=== PATIENT | male | born 1960 | race Caucasian/White ===

== ENCOUNTER 2019-05-28 21:11 | Observation (INO) | payer OTHER, SELFPAY ==
[2019-05-28] VITALS (7 sets, daily range): BP systolic 160–188; BP diastolic 93–107; PULSE 92–98; RESP 17–25; TEMP 36.8–37.2; O2SAT 95–98; BMI 34.9; BMI 34.0; BMI 34.1
--- NOTE | 2019-05-28 21:12 | CCN.REFER ---
RN CALLED FOR EKG, NO OLD EKGS IN MUSE
--- NOTE | 2019-05-28 21:22 | EKG12_ITS ---
Test Reason : CP Blood Pressure : / mmHG Vent. Rate : 100 BPM Atrial Rate : 100 BPM P-R Int : 160 ms QRS Dur : 100 ms QT Int : 360 ms P-R-T Axes : 052 033 034 degrees QTc Int : 464 ms Normal sinus rhythm Possible Left atrial enlargement Incomplete right bundle branch block Borderline ECG Confirmed by JOHN MOSER, OMER ([id number]), editorial assistant ARLETH ROBLES ([id number]) on 06/03/2019 9:37:56 AM Referred By: SHEYLA Confirmed By:NICKI LOPEZ MD
--- NOTE | 2019-05-28 21:22 | RAD_ITS ---
STUDY: X-RAY CHEST REASON FOR EXAM: Male, 58 years old. Chest pain. TECHNIQUE: Single AP portable view of the chest. COMPARISON: None. FINDINGS: The lungs are clear and expanded. There is no demonstrated pleural abnormality. Normal size heart. Normal mediastinum and selene. Normal visualized pulmonary arteries. Normal visualized aortic arch and descending thoracic aorta. Normal visualized thoracic spine. Normal visualized ribs, clavicles, and shoulders. There is no demonstrated abnormality of the visualized soft tissue structures of the upper abdomen. RAD/Chest 1 View (Portable) IMPRESSION: Normal x-ray examination of the chest. Electronically Signed: Piotr Mir MD at 21:43 EDT , Service support ,
[2019-05-28 21:33] LABS: Absolute Neutrophil Count 5.6 X10^3/uL (2.0-7.7); Basophil# 0.06 X10^3/uL; Basophil% 0.7 % (0-1); Eosinophils% 1.2 % (0-5); Hematocrit 47.8 % (40-54); Hemoglobin 15.9 g/dL (13.0-16.5); Lymphocyte % 25.8 % (19-41); Mean Corp Hgb Conc 33.3 g/dL (32-36); Mean Corpuscular Hgb 30.8 pg (27.0-32.0); Mean Corpuscular Volume 92.5 fL (80-94); Mean Platelet Vol. 9.4 fl (6.2-12.0); Monocyte# 0.52 X10^3/uL; Monocyte% 6.1 % (0-10); NRBC Flagged by Analyzer 0 % (0-5); Neutrophil # 5.61 X10^3/uL (2.7-7.7); Neutrophil % 65.8 % (47-70); Platelet Count 236 K/mm3 (150-450); RBC Distribution Width CV 11.6 % (11.6-14.6); RBC Distribution Width SD 39.8 fl (35.1-43.9); Red Blood Count 5.17 M/mm3 (4.6-6.2); White Blood Count 8.5 K/mm3 (4.4-11.0)
[2019-05-28 21:46] LABS: Anion Gap 6 (5-15); BUN 22 mg/dL (7-18); BUN/Creat Ratio 18.3 RATIO (10-20); Calcium,Total 9.6 mg/dL (8.5-10.1); Chloride 103 mmol/L (98-107); EST Glomerular Filtration Rate 66 mL/min (>60); Est Glom Filt Rate - Afr Amer 80 mL/min (>60); Estimated Creatinine Clearance 64.92 ml/min; Glucose 160 mg/dL (74-106); Potassium 3.9 mmol/L (3.5-5.1); Sodium Level 139 mmol/L (136-145)
[2019-05-28] MEDS: Aspirin 81 MG TAB.CHEW 324 MG PO (21:46)
[2019-05-28] MEDS: 0.9% Normal Saline 1,000 ML 150 ML IV (21:52)
--- NOTE | 2019-05-28 22:16 | ED.VISSUMM ---
- ER Visit Summary Date of Service: 05/28/19 Chief Complaint: [Chest pain] History of Present Illness: The patient is a 58 M [presents to the emergency department with chest discomfort that started around 8 PM. Patient states that he had finished eating and then was working on remodeling a stove. Patient bent over and developed sudden onset of chest pressure and diaphoresis. Patient states that his hair was soaked. He denied feeling lightheaded or dizzy. Patient had some discomfort and radiation of pressure into his neck area. He denied any real vomiting. Patient did complain of some mild shortness of breath. He is never had discomfort like that before. Patient has no medical history. He denies recent travel or surgery. Denies history of blood clots. No family history of dissection or Marfan's.] Patient states currently discomfort mostly resolved. Physical Examination: [HEENT-PERRLA, EOMI. Cranial nerves II through XII grossly intact. TMs clear. Mucous membranes moist. No adenopathy. Cardiovascular-regular rate and rhythm without murmur or ectopy Lungs-clear to auscultation, chest wall stable without crepitus or subcu emphysema Abdomen-normoactive bowel sounds, soft, nontender, no rebound or rigidity, no peritoneal signs. Extremities-intact ?4, normal range of motion, normal pulses, atraumatic] Test Results: [EKG obtained arrival shows sinus rhythm with a ventricular rate of 100 bpm with no acute ST segment changes. CBC with differential showed a white count of 8.5, hemoglobin 15.9 medically 48, placed 236. Chemistries unremarkable. Troponin is less than 0.015. Chest x-ray showed nothing acute.] Emergency Department Course and Treatment: [Patient was given aspirin on arrival.] Treatment Plan: [Admit for further work-up and evaluation of chest pain] Disposition: [Admit] Impression: [Chest pain-rule out acute coronary syndrome] This note was generated with [employer] dictation software. It may contain incorrect words, spelling, and punctuation that were not noted in review of the chart prior to signing ED Disposition - Plan for ED Patient: Referrals: Ramses Sánchez MD [Primary Care Provider] -
--- NOTE | 2019-05-28 22:30 | HP.PCM_ITS ---
Problem List (1) Atypical chest pain Status: Acute (2) Hypertension Status: Chronic History of Present Illness Date of Admission: 05/28/19 Chief Complaint: Diaphoresis The patient is a 58 year old M with with no significant past medical history, possible undiagnosed hypertension not on medication came to ED with main complaint of diaphoresis and mild right subclavicular chest tightness/pain lasting for 20 minutes. Patient further said while he was working on the remodeling of kitchen, he bent down and felt like diaphoresis, very mild chest tightness on the right side with with radiation to neck. He says his chest pain is secondary but main problem is diaphoresis. He also felt heavy breathing. The symptoms started about 8 PM and has resolved. Patient never had similar history of chest pain or OK. Never had a stress test or other cardiac test. Blood pressure in ED elevated 171/107. In ED, EKG shows normal sinus rhythm at 100 bpm with incomplete right bundle branch block with T inversion in lead V1. X-ray reported normal. Basic blood work shows BUN 22 mildly elevated. Glucose 160.] Past Medical History Past Medical History (Chronic Problems): Chronic Problems Hypertension (Chronic) Allergies No Known Allergies Allergy (Verified 05/28/19 21:14) Home Medications: Ambulatory Orders Medication Instructions Recorded NK 05/28/19 Smoking Status: Never smoker Alcohol: Occasional Drugs: None - *Family History Paternal History Items: Cancer - Chronic smoker, COPD and lung cancer Review of Systems Constitutional: Denies: Chills, Fever, Weight Change HEENT: Denies: Head Aches, Sinus Congestion, Sinus Drainage Cardiovascular: Reports: Chest Pain. Denies: Palpitations Respiratory: Denies: Cough, Shortness of breath at rest, Sputum production Gastrointestinal: Denies: Abdominal Pain, Nausea, Vomiting Genitourinary: Denies: Dysuria Musculoskeletal: Denies: Joint Pain, Joint Tenderness Skin: Denies: Rash, Wounds Neurological: Denies: Numbness, Tingling, Focal weakness Psychiatric: Denies: Anxiety, Depression, Homicidal Ideations, Suicidal Ideations Hematologic/ Lymphatic: Denies: Easy Bruising, Easy Bleeding VTE Information - Inpt Only VTE Present on Admission: No VTE Mechan Device Prophylaxis: None VTE Pharm Prophylaxis ordered?: Yes Patient Problems: Active and Suspected Problems Atypical chest pain (Acute) - Physical Exam General: Alert, Oriented x3, Cooperative HEENT: Atraumatic, PERRLA, EOMI, Normocephalic Neck: Supple, No JVD, Negative Carotid Bruits Lungs: Clear to auscultation, Normal air movement, No rhonchi, No wheeze, No rales Cardiovascular: Regular rate, Regular Rhythm, Normal S1, Normal S2, No murmurs Abdomen: Bowel Sounds Present, Soft, Non Tender, Non-Distended Extremities: No edema, Capillary Refill Less than 3 Seconds Skin: No rashes, No breakdown Musculoskeletal: No Tenderness to Palpation of Joints or Extremities, Arthritic Changes Neurological: Cranial nerves II-XII grossly intact, Deep Tendon Reflexes 2+/4 and Symmetrical, Neuro grossly intact, Motor Exam 5/5 strength throughout Psych/Mental Status: Normal Affect, Appropriate Vital Signs Temp Pulse Resp BP Pulse Ox 98.9 F 98 25 H 171/107 H 96 05/28/19 21:12 05/28/19 22:27 05/28/19 22:27 05/28/19 22:27 05/28/19 22:27 Oxygen Delivery Method Room Air Weight: 229 lb 8.019 oz Body Mass Index (BMI) 34.9 Laboratory Tests Past 24 Hrs 05/28/19 05/28/19 21:13 21:13 WBC 8.5 RBC 5.17 Hgb 15.9 Hct 47.8 MCV 92.5 MCH 30.8 MCHC 33.3 RDW Std Deviation 39.8 RDW Coeff of Doretha 11.6 Plt Count 236 MPV 9.4 Immature Gran % (Auto) 0.400 Neut % (Auto) 65.8 Lymph % (Auto) 25.8 [place] % (Auto) 6.1 Eos % (Auto) 1.2 Baso % (Auto) 0.7 Absolute Neuts (auto) 5.6 Absolute Lymphs (auto) 2.20 Nucleated RBC % 0 Sodium 139 Potassium 3.9 Chloride 103 Carbon Dioxide 30.0 Anion Gap 6 BUN 22 H Creatinine 1.20 Estim Creat Clear Calc 64.92 Est GFR (MDRD) Af Amer 80 Est GFR (MDRD) Non-Af 66 BUN/Creatinine Ratio 18.3 Glucose 160 H Calcium 9.6 Troponin I < 0.015 Assessment/Plan All Active Problems Atypical chest pain (Acute) The patient is a 58 year old M with with no significant past medical history, possible undiagnosed hypertension not on medication came to ED with main complaint of diaphoresis and mild right subclavicular chest tightness/pain lasting for 20 minutes. Patient further said while he was working on the remodeling of kitchen, he bent down and felt like diaphoresis, very mild chest tightness on the right side with with radiation to neck. He says his chest pain is secondary but main problem is diaphoresis. He also felt heavy breathing. The symptoms started about 8 PM and has resolved. Patient never had similar history of chest pain or OK. Never had a stress test or other cardiac test. Blood pressure in ED elevated 171/107. In ED, Chest X-ray reported normal. Basic blood work shows BUN 22 mildly elevated. Glucose 160. 1. Atypical presentation of chest pain with diaphoresis rule out acute coronary syndrome: Patient is being admitted in PCU. Serial troponin enzymes. Patient only wants exercise EKG test but no nuclear stress test unless it is absolutely needed and the same ordered for tomorrow a.m. EKG shows normal sinus rhythm at 100 bpm with incomplete right bundle branch block with T inversion in lead V1. With incomplete right bundle branch block, there is probability that stress EKG may not be enough sensitive/specific to rule out acute coronary syndrome that was explained to the patient. TSH and fasting profile tomorrow a.m. Magnesium tomorrow a.m. 2. Undiagnosed uncontrolled hypertension: In the ER, highest blood pressure was 188/101 and lowest 160/95. Started on losartan 50 mg daily, first dose now. Titrate the dose of medication as per blood pressure trending. Hydralazine 10 mg IV every 4 hourly as needed for systolic blood pressure more than 180 and/or diastolic 100. BUN slightly elevated. IV fluid normal saline at 100 normal per hour. 3. Hyperglycemia: Glucose 160 in BMP. A1c tomorrow a.m. Occasional heartburn: . Protonix 40 mg daily added. Mylanta as needed DVT prophylaxis: Lovenox 40 g subcu daily Laboratory Results 05/28/19 21:13: WBC 8.5, RBC 5.17, Hgb 15.9, Hct 47.8, MCV 92.5, MCH 30.8, MCHC 33.3, RDW Std Deviation 39.8, RDW Coeff of Doretha 11.6, Plt Count 236, MPV 9.4, Immature Gran % (Auto) 0.400, Neut % (Auto) 65.8, Lymph % (Auto) 25.8, [place] % (Auto) 6.1, Eos % (Auto) 1.2, Baso % (Auto) 0.7, Absolute Neuts (auto) 5.6, Absolute Lymphs (auto) 2.20, Nucleated RBC % 0 05/28/19 21:13: Sodium 139, Potassium 3.9, Chloride 103, Carbon Dioxide 30.0, Anion Gap 6, BUN 22 H, Creatinine 1.20, Estim Creat Clear Calc 64.92, Est GFR (MDRD) Af Amer 80, Est GFR (MDRD) Non-Af 66, BUN/Creatinine Ratio 18.3, Glucose 160 H, Calcium 9.6, Troponin I < 0.015 Clinical Impression(s) from Imaging Studies Chest X-Ray 05/28/19 21:22 IMPRESSION: Normal x-ray examination of the chest. Code Visit OBSV E&M: 78422 Initial observation care L3
--- NOTE | 2019-05-28 23:38 | EKG12_ITS ---
Test Reason : CP ADMISSION Blood Pressure : / mmHG Vent. Rate : 086 BPM Atrial Rate : 086 BPM P-R Int : 168 ms QRS Dur : 104 ms QT Int : 372 ms P-R-T Axes : 051 033 033 degrees QTc Int : 445 ms Normal sinus rhythm Incomplete right bundle branch block Borderline ECG No previous ECGs available Confirmed by GUILLERMO CASTRO ([id number]), photograph editor ARLETH ROBLES ([id number]) on 06/03/2019 10:39:01 AM Referred By: BRENNON Confirmed By:GUILLERMO CASTRO
[2019-05-29] VITALS (13 sets, daily range): BP systolic 122–154; BP diastolic 81–99; PULSE 78–85; RESP 16–18; TEMP 36.4–37; O2SAT 94–99
[2019-05-29] MEDS: 0.9% NaCl Peripheral Flush Adult/Peds IV (00:15)
[2019-05-29] MEDS: Enoxaparin 40 MG/0.4 ML Syringe SC (00:15)
[2019-05-29] MEDS: Pantoprazole Sodium 40 MG Tablet PO (00:15)
[2019-05-29] MEDS: Losartan Potassium 50 MG Tablet PO ×2 (00:15→03:39)
[2019-05-29] MEDS: 0.9% Normal Saline 1,000 ML 100 ML IV (00:15)
[2019-05-29 00:54] LABS: Magnesium 2.3 mg/dL (1.6-2.6)
[2019-05-29] MEDS: Enoxaparin 60 MG/0.6 ML Syringe SC (03:39)
[2019-05-29 05:01] LABS: Hemoglobin A1c 5.8 % (4.2-6.3)
--- NOTE | 2019-05-29 05:55 | EKG12_ITS ---
Test Reason : AM EKG Blood Pressure : / mmHG Vent. Rate : 080 BPM Atrial Rate : 080 BPM P-R Int : 162 ms QRS Dur : 104 ms QT Int : 388 ms P-R-T Axes : 068 039 036 degrees QTc Int : 447 ms Normal sinus rhythm Incomplete right bundle branch block Borderline ECG When compared with ECG of 28-MAY-2019 23:36, MANUAL COMPARISON REQUIRED, DATA IS UNCONFIRMED Confirmed by GUILLERMO CASTRO ([id number]), video editor ARLETH ROBLES ([id number]) on 06/03/2019 10:41:12 AM Referred By: BRENNON Confirmed By:GUILLERMO CASTRO
[2019-05-29 06:05] LABS: Cholesterol 173 mg/dL (200); High Density Lipoprotein 42 mg/dL; Thyroid Stim Hormone (TSH) 2.13 uIU/mL (0.358-3.74); Triglycerides 114 mg/dL; Very Low Density Lipoprotein 23 mg/dL (5-40)
--- NOTE | 2019-05-29 09:40 | PCM.CONS.C ---
<Ramses Green - Last Filed: 05/29/19 11:46> Problem List (1) Non-ST elevated myocardial infarction (non-STEMI) Status: Acute (2) Atypical chest pain Status: Acute (3) Hypertension Status: Chronic Reason for Consult Date of Consultation: 05/29/19 Reason for Consultation: NSTEMI, Chest pain History of Present Illness: The patient is a 58 year old M who presented to [facility] emergency department on 05/28/2019 for chest pain associated with diaphoresis and mild shortness of breath. He has a past medical history of hypertension. He denies previous history of smoking, diabetes, illegal or street drugs, or excessive alcohol. He states he was at home working on a remodeling project and after bending forward he became very diaphoretic and noticed right upper chest pain. This was associated with intermittent shortness of breath and belching. He described this as a heavy sensation and rated a 2 out of 10. This lasted for approximately 20 to 30 minutes. He did take [id number] Tums. While in the Emergency Department he underwent an EKG that showed normal sinus rhythm without ST or T wave changes. His first troponin was negative. His chest x-ray was negative for acute pathology. He was admitted for further evaluation. Cardiology was consulted for further recommendation. Past Medical History Allergies/Adverse Reactions: Allergies No Known Allergies Allergy (Verified 05/28/19 21:14) Home Medications: Ambulatory Orders Medication Instructions Recorded Aspirin E.C. [Ecotrin] 81 mg PO DAILY@0800 #30 tab 05/29/19 Losartan Potassium [Cozaar] 100 mg PO DAILY #30 tab 05/29/19 Past Medical History (Chronic Problems): Chronic Problems (Last Updated 05/29/19 @ 16:06 by Yvonne Payan) Essential hypertension (Chronic) - *Family History Paternal History Items: Cancer - Chronic smoker, COPD and lung cancer Smoking Status: Never smoker Alcohol: Occasional Drugs: None Review of Systems - Review of Systems General: Denies: Fever, Fatigue, Malaise, Chills HEENT: Denies: Vision Change Cardiovascular: Reports: Chest Discomfort - Resolved, Chest Discomfort with Exertion - Resolved, Chest Heaviness - Resolved, Shortness of Breath - Resolved, Shortness of Breath with Exertion - Resolved. Denies: Chest Discomfort at Rest, Chest Pressure, Chest Tightness, Orthopnea, PND, Peripheral Edema, Palpitations, Lightheadedness, Dizziness, Near Syncope, Syncope Respiratory: Denies: Cough Neurological: Denies: Dizziness Subjectve: Patient seen and evaluated. He currently denies chest pain, shortness of breath, diaphoresis, lower extremity edema, or orthopnea. Objective: Vital Signs Temp Pulse Resp BP Pulse Ox 98.3 F 80 16 143/93 H 99 05/29/19 09:10 05/29/19 09:10 05/29/19 09:10 05/29/19 09:10 05/29/19 09:10 Oxygen Delivery Method Room Air Weight: 224 lb 3.362 oz Body Mass Index (BMI) 34.0 Intake and Output for Last 24 Hours 05/27/19 05/28/19 05/29/19 23:59 23:59 23:59 Intake Total 170 / 830 780 / 780 Balance 170 / 830 780 / 780 General: Healthy Appearing, Awake, Alert, Oriented x 3, Cooperative, No Acute Distress HEENT: Atraumatic Oral: Moist Mucosa Neck: No JVD Lungs: Clear to auscultation Cardiovascular: Regular Rhythm, Normal S1, Normal S2, No Murmurs, No Rubs, No Gallops Vascular: No Carotid Bruits Abdomen: Bowel Sounds Present, Soft Extremities: No Cyanosis, No Clubbing, No edema, Normal Capillary Refill Neurological: No Focal Motor or Sensory Deficit 05/28/19 21:13: WBC 8.5, RBC 5.17, Hgb 15.9, Hct 47.8, MCV 92.5, MCH 30.8, MCHC 33.3, Plt Count 236, MPV 9.4, Immature Gran % (Auto) 0.400, Neut % (Auto) 65.8, Lymph % (Auto) 25.8, [place] % (Auto) 6.1, Eos % (Auto) 1.2, Baso % (Auto) 0.7, Absolute Neuts (auto) 5.6, Nucleated RBC % 0 05/28/19 21:13: Sodium 139, Potassium 3.9, Chloride 103, Carbon Dioxide 30.0, Anion Gap 6, BUN 22 H, Creatinine 1.20, Est GFR (MDRD) Af Amer 80, Est GFR (MDRD) Non-Af 66, BUN/Creatinine Ratio 18.3, Glucose 160 H, Calcium 9.6, Troponin I < 0.015 05/29/19 00:30: Magnesium 2.3, Troponin I 0.507 H 05/29/19 03:20: Troponin I 0.448 H 05/29/19 03:20: Triglycerides 114, Cholesterol 173, LDL Cholesterol 108, VLDL Cholesterol 23, HDL Cholesterol 42 05/29/19 03:20: Hemoglobin A1c 5.8 Rhythm: EKG: ECHO: Stress Test: Cardiac Cath: PCI: CT Surgery: Holter monitor: EPS: PPM: CXR: Chest CT Scan: Assessment/Plan 1. Non-ST elevated myocardial infarction Patient has both typical and atypical features in regards to his chest pain. His EKG shows normal sinus rhythm without acute ST or T wave changes with a right bundle branch block and a QTC of 447. His initial troponin was negative. His second troponin was 0.507 and the third troponin was 0.448. He will proceed with heart catheterization for further evaluation of coronary artery disease. He will continue with Aspirin therapy. Based on results, further recommendation will be made, which may include cholesterol-lowering medication and further antiplatelet medication. He will also undergo an echocardiogram to evaluate further. 2. Atypical chest pain Patient does describe symptoms of atypical chest pain in that this was associated predominantly with belching. However, given his cardiac enzyme changes he will proceed with heart catheterization for further evaluation. If his heart catheterization is normal, optimal medical management is recommended. 3. Hypertension His blood pressure continues to fluctuate. He does not take any medications at home. He has been prescribed losartan 100 mg p.o. daily here at the hospital. Based on results of his heart catheterization and blood pressure he may benefit from beta-joao. He should continue current medical therapy. His echocardiogram will help assist in treatment and help monitor left ventricular size. Patient's case was discussed further with Dr. Hanks, who also personally will evaluate patient. Thank you for allowing us to participate in the patients plan of care, if you have any questions please do not hesitate to call. This note was generated using a voice recognition system and there may be incorrect words, spelling or punctuation that were not noted when reviewing the office note prior to saving. <Juliet Hanks - Last Filed: 05/29/19 17:14> Reason for Consult History of Present Illness: The patient is a 58 year old M [] Objective: Vital Signs Temp Pulse Resp BP Pulse Ox 98.6 F 81 17 154/94 H 96 05/29/19 16:50 05/29/19 16:50 05/29/19 16:50 05/29/19 16:50 05/29/19 16:50 Oxygen Delivery Method Room Air Weight: 224 lb 3.362 oz Body Mass Index (BMI) 34.0 Intake and Output for Last 24 Hours 05/27/19 05/28/19 05/29/19 23:59 23:59 23:59 Intake Total 170 / 830 1779 Balance 170 / 830 1779 / 177905/28/19 21:13: WBC 8.5, RBC 5.17, Hgb 15.9, Hct 47.8, MCV 92.5, MCH 30.8, MCHC 33.3, Plt Count 236, MPV 9.4, Immature Gran % (Auto) 0.400, Neut % (Auto) 65.8, Lymph % (Auto) 25.8, [place] % (Auto) 6.1, Eos % (Auto) 1.2, Baso % (Auto) 0.7, Absolute Neuts (auto) 5.6, Nucleated RBC % 0 05/28/19 21:13: Sodium 139, Potassium 3.9, Chloride 103, Carbon Dioxide 30.0, Anion Gap 6, BUN 22 H, Creatinine 1.20, Est GFR (MDRD) Af Amer 80, Est GFR (MDRD) Non-Af 66, BUN/Creatinine Ratio 18.3, Glucose 160 H, Calcium 9.6, Troponin I < 0.015 05/29/19 00:30: Magnesium 2.3, Troponin I 0.507 H 05/29/19 03:20: Troponin I 0.448 H 05/29/19 03:20: Triglycerides 114, Cholesterol 173, LDL Cholesterol 108, VLDL Cholesterol 23, HDL Cholesterol 42 05/29/19 03:20: Hemoglobin A1c 5.8 Rhythm: EKG: ECHO: Stress Test: Cardiac Cath: PCI: CT Surgery: Holter monitor: EPS: PPM: CXR: Chest CT Scan: Assessment/Plan Since seen, evaluated and discussed with Ramses green APN. Patient has chest pain and elevated troponin. We will proceed with coronary angiography to evaluate this further. Patient understands risks and benefits and is agreeable to proceed.
[2019-05-29] MEDS: Aspirin E.C. 325 MG Tablet PO (09:42)
[2019-05-29] MEDS: Losartan Potassium 100 MG Tablet PO (09:43)
--- NOTE | 2019-05-29 10:03 | ECHOD_ITS ---
Reason For Study: CP Procedure This was a 2D Doppler, Color Flow transthoracic echocardiogram. Heart Cath 05/29/2019. The study was technically difficult. Exam performed portable in patient room. Left Ventricle Normal size and thickness. The estimated ejection fraction is 60 %. No evidence for diastolic dysfunction. No regional wall motion abnormalities noted. Right Ventricle Normal RV size. Normal systolic function. Atria Normal left atrium. Normal right atrium. No doppler evidence for ASD. Mitral Valve There is no mitral valve stenosis. No mitral valve insufficiency. Tricuspid Valve There is no tricuspid stenosis. Unable to estimate RV systolic pressure due to inadequate jet, pulmonary artery pressure probably normal. Aortic Valve Trisinus/trileaflet aortic valve. There is no aortic stenosis. No aortic valve insufficiency. Pulmonic Valve There is no pulmonic valvular stenosis. No pulmonic valve insufficiency. Great Vessels Normal aortic root. Pericardium/Pleural No pericardial effusion. MMode/2D Measurements & Calculations LVIDd: 4.9 cm IVSd: 1.3 cm Ao root diam: 3.5 cm LVIDs: 2.8 cm LVPWd: 1.1 cm LA dimension: 4.1 cm FS: 42.4 % LAV(MOD-bp): 41.6 ml LA A4 area: 15.1 cm2 RA A4 area: 13.4 cm2 LAV(MOD-bp) Indexed: 19.8 ml/m2 LAV(MOD-sp2): 48.2 ml LAV(MOD-sp4): 35.0 ml Time Measurements MV dec time: 0.20 sec Doppler Measurements & Calculations MV E max george: 93.6 cm/sec Lat Peak E' George: 9.2 cm/sec Med Peak E' George: 7.9 cm/sec MV A max george: 106.8 cm/sec E/E' lat: 10.2 E/E' med: 11.9 MV E/A: 0.88 MV V2 max: 119.4 cm/sec MV P1/2t max george: 104.0 cm/sec Ao V2 max: 126.2 cm/sec MV max P.7 mmHg MV P1/2t: 56.5 msec Ao max P.4 mmHg MV V2 mean: 64.3 cm/sec MV dec slope: 539.6 cm/sec2 MV mean P.0 mmHg MVA(P1/2t): 3.9 cm2 MV V2 VTI: 28.6 cm LV V1 max: 118.1 cm/sec PA V2 max: 79.0 cm/sec LV V1 max P.6 mmHg Interpretation Summary The estimated ejection fraction is 60 %. No evidence for diastolic dysfunction. Ordering Physician: Juliet Hanks Referring Physician: Rmases Sánchez Performed By: Kel Prajapati RCS
--- NOTE | 2019-05-29 10:12 | CASEMGMT ---
According to [employer] website, the following are in-network tertiary facilities: [facility], [facility], [facility], [facility], [facility], [facility], [facility], and . Akhil JANSEN CM
--- NOTE | 2019-05-29 10:18 | NURSING ---
Report called to Larry in cath lab technologist. Informed that consent form will need signed down there.
--- NOTE | 2019-05-29 11:58 | PCM.PROGNOTE ---
<Ceci Diaz - Last Filed: 05/29/19 12:05> Subjective: Patient seen and examined. Denies chest pain or other symptoms overnight. Patient reports he was working on his kitchen when he developed severe diaphoresis, right chest pressure and dyspnea. He states symptoms resolved in about 20 minutes when he sat down. He denies history of heart disease or prior cardiac testing. He has not had these symptoms before. Plan for cardiac catheterization later today. - Physical Exam General: Alert, Oriented x3, Cooperative HEENT: Atraumatic, PERRLA, EOMI, Normocephalic Neck: Supple, No JVD, Negative Carotid Bruits Lungs: Clear to auscultation, Normal air movement Cardiovascular: Regular rate, Regular Rhythm, Normal S1, Normal S2, No murmurs Abdomen: Bowel Sounds Present, Soft, Non Tender, Non-Distended Extremities: No clubbing, No cyanosis, No edema, Capillary Refill Less than 3 Seconds Skin: No rashes, No breakdown Musculoskeletal: No Tenderness to Palpation of Joints or Extremities Neurological: Cranial nerves II-XII grossly intact, Neuro grossly intact Psych/Mental Status: Normal Affect, Appropriate Vital Signs Temp Pulse Resp BP Pulse Ox 98.3 F 80 16 143/93 H 99 05/29/19 09:10 05/29/19 09:10 05/29/19 09:10 05/29/19 09:10 05/29/19 09:10 Oxygen Delivery Method Room Air Weight: 224 lb 3.362 oz Body Mass Index (BMI) 34.0 Intake and Output for Last 24 Hours 05/27/19 05/28/19 05/29/19 23:59 23:59 23:59 Intake Total 170 / 830 1780 / 1780 Balance 170 / 830 1780 / 1780 Laboratory Tests Past 24 Hrs 05/28/19 05/28/19 05/29/19 21:13 21:13 00:30 WBC 8.5 RBC 5.17 Hgb 15.9 Hct 47.8 MCV 92.5 MCH 30.8 MCHC 33.3 RDW Std Deviation 39.8 RDW Coeff of Doretha 11.6 Plt Count 236 MPV 9.4 Immature Gran % (Auto) 0.400 Neut % (Auto) 65.8 Lymph % (Auto) 25.8 [place] % (Auto) 6.1 Eos % (Auto) 1.2 Baso % (Auto) 0.7 Absolute Neuts (auto) 5.6 Absolute Lymphs (auto) 2.20 Nucleated RBC % 0 Sodium 139 Potassium 3.9 Chloride 103 Carbon Dioxide 30.0 Anion Gap 6 BUN 22 H Creatinine 1.20 Estim Creat Clear Calc 64.92 Est GFR (MDRD) Af Amer 80 Est GFR (MDRD) Non-Af 66 BUN/Creatinine Ratio 18.3 Glucose 160 H Hemoglobin A1c Calcium 9.6 Magnesium 2.3 Troponin I < 0.015 0.507 H Triglycerides Cholesterol LDL Cholesterol VLDL Cholesterol HDL Cholesterol TSH 05/29/19 05/29/19 05/29/19 03:20 03:20 03:20 WBC RBC Hgb Hct MCV MCH MCHC RDW Std Deviation RDW Coeff of Doretha Plt Count MPV Immature Gran % (Auto) Neut % (Auto) Lymph % (Auto) [place] % (Auto) Eos % (Auto) Baso % (Auto) Absolute Neuts (auto) Absolute Lymphs (auto) Nucleated RBC % Sodium Potassium Chloride Carbon Dioxide Anion Gap BUN Creatinine Estim Creat Clear Calc Est GFR (MDRD) Af Amer Est GFR (MDRD) Non-Af BUN/Creatinine Ratio Glucose Hemoglobin A1c 5.8 Calcium Magnesium Troponin I 0.448 H Triglycerides 114 Cholesterol 173 LDL Cholesterol 108 VLDL Cholesterol 23 HDL Cholesterol 42 TSH 2.13 Medical Necessity - Tobacco Use Smoking Status: Never smoker Assessment/Plan 1. Chest pain and abnormal cardiac enzyme, rule out ACS-cardiology consulted. EKG without ST-T changes. To undergo cardiac catheterization. Continue aspirin, losartan. 2. Elevated blood pressure without prior diagnosis of hypertension-initiated on losartan 100 mg daily. Continue to monitor and make adjustments as necessary. 3. Obesity-encouraged diet and lifestyle modifications. DVT prophylaxis-Lovenox subcu This patient was seen by CHRISTY Warner under the supervision of Dr. Felipe. <Melany Felipe - Last Filed: 06/03/19 23:35> - Physical Exam Vital Signs Temp Pulse Resp BP Pulse Ox 98.6 F 81 17 154/94 H 96 05/29/19 16:50 05/29/19 16:50 05/29/19 16:50 05/29/19 16:50 05/29/19 16:50 Oxygen Delivery Method Room Air Weight: 224 lb 3.362 oz Body Mass Index (BMI) 34.0 Assessment/Plan The pt was seen independently and in conjunction with Ceci. He was admitted with R side chest pain associated with diaphoresis and SOB. Troponins are increased. Seen by cardiology and scheduled for cardiac catheterization today. BP is better with addition of Losartan to drug regimen. I agree with the PE as documented by Ceci with no exceptions. 1. ACS with CP and elevated troponins 2. elevated BP with no hx of HTN 3. obesity. Await the results of the cath today to make further tx decisions Discussed with Ceci and orders have been written.
--- NOTE | 2019-05-29 12:34 | CL.D_ITS ---
Patient Name: DANIELE CHAVEZ Study Date: 05/29/2019 Performing: Nayeli Hanks MD Ht: 68 inches 173 cm : 1960 Wt: 225.2 lbs 102 kg Age: 58 Gender: male BSA: 2.15 PROCEDURE(S) PERFORMED [id number] CLINICAL PROFILE AND INDICATIONS Indications: ACS <= 24 hrs Heart Failure: None Stress/Imaging Stress/Image Study Performed: No CAD Presentations: Non-STEMI. Symptom onset Date/Time: 05/28/19 Time Not Available CONCLUSIONS Mild CAD, No significant RECOMMENDATIONS ASA Indefinitely unless patient has contraindications/ side effects. Risk factor modification. Consider statin therapy. DESCRIPTION OF PROCEDURE The patient arrived to the procedure lab. The risks and benefits of the procedure as well as a full d escription of our services here and current unavailability of surgical backup were fully explained to the patient and/or their significant other prior to the catheterization. The Timeout was completed, verifying the correct patient and procedure. The patient's procedural site was prepped and draped in the usual fashion. Local anesthetic was given subcutaneously to right radial region with Lidocaine 2% . Using a modified Seldinger technique, arterial access was obtained via the right radial artery, a 6 Fr sheath was inserted. Left Coronary Artery selective angiography was performed in multiple views u sing a 5 Fr. JL3.5 catheter. Right Coronary Artery selective angiography was then performed in multip le views using a 5 Fr. JR 4 catheter. LV to AO pullback pressures were then recorded.The arterial she ath was pulled and a TR Band was applied for hemostasis. 10 cc of air CORONARY ANGIOGRAPHY DOMINANCE: Right Dominant LEFT HEART ASSESSMENT Left Ventricular Ejection Fraction: Not assessed LEFT MAIN: Mild luminal irregularities LEFT ANTERIOR DESCENDING ARTERY: Mild luminal irregularities MID LAD: 20 % Stenosis CIRCUMFLEX ARTERY: Mild luminal irregularities RIGHT CORONARY ARTERY: Mild luminal irregularities VALVE FINDINGS: No Aortic Valve Stenosis COMPLICATIONS No Complications PROCEDURE MEDICATIONS Versed 1 mg IV Fentanyl 50 mcg IV Oxygen: 2 L/min via nasal cannula Heparin given IA 05/29/2019 11:30:35 Verapamil 2.5mg, Ntg 100mcgs, 3000 units of Heparin given IA 05/29/2019 11:30:35 SUMMARY OF HEMODYNAMIC DATA Time AIR REST ECG 11:08:03 LV 180/-8, -5 11:33:37 LV 174/-6, 3 11:33:44 LVp 144/-20, 1 11:34:04 AOp 138/83 (106) 11:34:09 AO 123/90 (107) SA 11:37:12 Signed By Nayeli Hanks MD On 05/29/2019 12:33:24 Nayeli Hanks MD
--- NOTE | 2019-05-29 13:36 | DCINST_ITS ---
- Discharge Diagnoses Current Active Problems: Current Active and Chronic Problems Atypical chest pain (Acute) Hypertension (Chronic) Non-ST elevated myocardial infarction (non-STEMI) (Acute) You will use the following diet at home:: Cardiac Discharge Activity: Return to Normal Activity Call your doctor if you observe: Shortness of breath, Dizziness, Fainting spells, Chest pain Allergies/Adverse Reactions: Allergies No Known Allergies Allergy (Verified 05/28/19 21:14) Medications to take at Discharge Aspirin E.C. [Ecotrin] 81 mg PO DAILY@0800 #30 tab 05/29/19 Losartan Potassium [Cozaar] 100 mg PO DAILY #30 tab 05/29/19 The following prescriptions were given: Losartan Potassium [Cozaar] 100 mg PO DAILY #30 tab Transmission Status: Received by [id number] Aspirin E.C. [Ecotrin] 81 mg PO DAILY@0800 #30 tab Transmission Status: Received by [id number] Test Results: Test results from this visit will be discussed in further detail at your follow- up appointment, if applicable. Please Follow Up With: Ramses Saleh MD When: 1 Week Please Follow Up With: Juliet Hanks MD When: Follow up next week Proposed Discharge Date: 05/29/19
--- NOTE | 2019-05-29 14:49 | DS.PCM_ITS ---
<Ceci Diaz - Last Filed: 05/29/19 14:55> Discharge Date and Diagnosis Date of Admission: 05/28/19 Date of Discharge: 05/29/19 - Primary Discharge Diagnosis Active and Suspected Problems 1. NSTEMI, mild CAD 2. New diagnosis hypertension 3. Obesity - Secondary Discharge Diagnosis Chronic Problems Hypertension (Chronic) Hospital Course and Treatment Imaging Results: Diagnostic Data Chest X-Ray 05/28/19 21:22 IMPRESSION: Normal x-ray examination of the chest. Electronically Signed: Piotr Mir MD at 21:43 EDT , Service support , Dr. Hanks-Cardiology Operations: None Procedures: 2-D Echocardiogram, Cardiac catheterization Summary of Care Provided: The patient is a 58 year old M admitted 05/28/2019 due to diaphoresis. 1. NSTEMI, Mild CAD-EKG without ST-T changes. Cardiology consulted during admission. Patient underwent cardiac catheterization which demonstrated mild CAD, nonobstructive coronary arteries. Echocardiogram completed, report pending at discharge. Follow-up with cardiology, Dr. Hanks next week. Continue aspirin, losartan at discharge. Consider low-dose statin as outpatient. 2. New diagnosis hypertension-initiated on losartan 100 mg daily. Continue outpatient monitoring. 3. Obesity-encouraged diet and lifestyle modifications. General: Alert, Oriented x3, Cooperative HEENT: Atraumatic, PERRLA, EOMI, Normocephalic Neck: Supple, No JVD, Negative Carotid Bruits Lungs: Clear to auscultation, Normal air movement Cardiovascular: Regular rate, Regular Rhythm, Normal S1, Normal S2, No murmurs Abdomen: Bowel Sounds Present, Soft, Non Tender, Non-Distended Extremities: No clubbing, No cyanosis, No edema, Capillary Refill Less than 3 Seconds Skin: No rashes, No breakdown Musculoskeletal: No Tenderness to Palpation of Joints or Extremities Neurological: Cranial nerves II-XII grossly intact, Neuro grossly intact Psych/Mental Status: Normal Affect, Appropriate Patient seen and examined prior to discharge. Physical assessment as noted above. Patient is stable for discharge with follow up recommendations as noted above. This patient was seen by CHRISTY Warner under the supervision of Dr. Sementi. - Physical Exam Vital Signs Temp Pulse Resp BP Pulse Ox 97.6 F L 84 17 145/88 H 96 05/29/19 12:11 05/29/19 13:45 05/29/19 13:45 05/29/19 13:45 05/29/19 13:45 Oxygen Delivery Method Room Air Weight: 224 lb 3.362 oz Body Mass Index (BMI) 34.0 Intake and Output for Last 24 Hours 05/27/19 05/28/19 05/29/19 23:59 23:59 23:59 Intake Total 170 / 830 1780 / 1780 Balance 170 / 830 1780 / 1780 Laboratory Tests Past 24 Hrs 05/28/19 05/28/19 05/29/19 21:13 21:13 00:30 WBC 8.5 RBC 5.17 Hgb 15.9 Hct 47.8 MCV 92.5 MCH 30.8 MCHC 33.3 RDW Std Deviation 39.8 RDW Coeff of Doretha 11.6 Plt Count 236 MPV 9.4 Immature Gran % (Auto) 0.400 Neut % (Auto) 65.8 Lymph % (Auto) 25.8 [place] % (Auto) 6.1 Eos % (Auto) 1.2 Baso % (Auto) 0.7 Absolute Neuts (auto) 5.6 Absolute Lymphs (auto) 2.20 Nucleated RBC % 0 Sodium 139 Potassium 3.9 Chloride 103 Carbon Dioxide 30.0 Anion Gap 6 BUN 22 H Creatinine 1.20 Estim Creat Clear Calc 64.92 Est GFR (MDRD) Af Amer 80 Est GFR (MDRD) Non-Af 66 BUN/Creatinine Ratio 18.3 Glucose 160 H Hemoglobin A1c Calcium 9.6 Magnesium 2.3 Troponin I < 0.015 0.507 H Triglycerides Cholesterol LDL Cholesterol VLDL Cholesterol HDL Cholesterol TSH 05/29/19 05/29/19 05/29/19 03:20 03:20 03:20 WBC RBC Hgb Hct MCV MCH MCHC RDW Std Deviation RDW Coeff of Doretha Plt Count MPV Immature Gran % (Auto) Neut % (Auto) Lymph % (Auto) [place] % (Auto) Eos % (Auto) Baso % (Auto) Absolute Neuts (auto) Absolute Lymphs (auto) Nucleated RBC % Sodium Potassium Chloride Carbon Dioxide Anion Gap BUN Creatinine Estim Creat Clear Calc Est GFR (MDRD) Af Amer Est GFR (MDRD) Non-Af BUN/Creatinine Ratio Glucose Hemoglobin A1c 5.8 Calcium Magnesium Troponin I 0.448 H Triglycerides 114 Cholesterol 173 LDL Cholesterol 108 VLDL Cholesterol 23 HDL Cholesterol 42 TSH 2.13 Discharge Diet: Low fat/ Low Cholesterol Discharge Activity: Return to Normal Activity Call your doctor if you observe: Shortness of breath, Dizziness, Fainting spells, Chest pain Home Medications: Medications to take at Discharge Aspirin E.C. [Ecotrin] 81 mg PO DAILY@0800 #30 tab 05/29/19 Following Prescrptions Were Given to Patient: Aspirin E.C. [Ecotrin] 81 mg PO DAILY@0800 #30 tab Transmission Status: Received by [id number] Primary Care Physician: Ramses Sánchez MD [Primary Care Provider] - Please Follow Up With: Ramses Saleh MD When: 1 Week Please Follow Up With: Juliet Hanks MD When: Follow up next week Disposition: Home Minutes spent on discharge:: 35 Patient Condition:: Stable Medical Necessity - Tobacco Use Smoking Status: Never smoker Meaningful Use Info Meaningful Use Diagnoses (Choose all that apply): None applicable <Melany Felipe - Last Filed: 06/04/19 00:05> Discharge Date and Diagnosis - Secondary Discharge Diagnosis Chronic Problems (Last Reviewed 06/03/19 @ 16:45 by Juliet Hanks MD) History of left heart catheterization (Chronic ~05/29/19) Atherosclerosis of coronary artery of [place] heart without angina pectoris (Chronic) Essential hypertension (Chronic) Non-ST elevated myocardial infarction (non-STEMI) (Chronic) Hospital Course and Treatment Summary of Care Provided: The patient is a 58 year old M admitted to the hospital with diaphoresis. EKG with no significant ST or T wave changes. Second troponin went up to 0.507 and then started to trend down. Seen by cardiology and cardiac cath done which showed minimal CAD which was non-obstructive. ECHO shows an EF of 60% with no wall motion abnormalities. Discharged home and instructed to continue ASA 81 mg daily. Alert and oriented X3 Lungs - CTA Heart - RRR without MM and no gallop no edema and no calf tenderness Impressions 1. NSTEMI with non-obstructive coronaries on cath...mild luminal irregularities only and nothing > 20%2 2. HTN[] 3. Obesity Discussed with Ceci and orders for DC have been written. Follow up with Dr. Granger in 1 week. - Physical Exam Vital Signs Temp Pulse Resp BP Pulse Ox 98.6 F 81 17 154/94 H 96 05/29/19 16:50 05/29/19 16:50 05/29/19 16:50 05/29/19 16:50 05/29/19 16:50 Oxygen Delivery Method Room Air Weight: 224 lb 3.362 oz Body Mass Index (BMI) 34.0 Code Visit OBSV E&M: [id number] Observation care discharge
--- NOTE | 2019-05-29 16:50 | NURSING ---
Discharge teaching completed. Patient and his voice understanding of same.
== END 2019-05-29 14:48 | disposition home or self-care (01) ==
LOC: ED 21:50 → PCU 23:39
PROVIDERS: Admitting Provider Internal Medicine; Emergency Provider Emergency Medicine; Family Provider Family Medicine; PCP Family Medicine; Visit Provider Internal Medicine
DX: I21.4 Non-ST elevation (NSTEMI) myocardial infarction (principal); I25.10 Atherosclerotic heart disease of native coronary artery without angina pectoris; I10 Essential (primary) hypertension; E66.9 Obesity, unspecified; R73.9 Hyperglycemia, unspecified; I25.2 Old myocardial infarction; Z68.34 Body mass index [BMI] 34.0-34.9, adult; Z71.3 Dietary counseling and surveillance
CPT/HCPCS: 36415; 71045; 80048; 80061; 83036; 83735; 84443; 84484; 85025; 93005; 93306; 93454; 96360; 96361; 96372; 99152; 99153; 99218; 99285; J7030; Q9957; Q9967; A4216; C1769; C1894; G0378

== ENCOUNTER → 2021-08-16 | Outpatient (CLI) | payer OTHER, SELFPAY | END | disposition home or self-care (01) | LOC: LABSPEC 15:13 | PROVIDERS: PCP Family Medicine; Visit Provider Family Medicine | DX: U07.1 COVID-19 (principal) | CPT/HCPCS: 87635; U0005; U0003 ==

== ENCOUNTER 2021-10-14 10:49 | Outpatient (CLI) | payer OTHER, SELFPAY ==
[2021-10-14 11:08] LABS: Absolute Lymphocyte Count 1.73 X10^3/uL (0.83-4.51); Absolute Neutrophil Count 4.1 X10^3/uL (2.0-7.7); Basophil# 0.07 X10^3/uL; Basophil% 1.1 % (0-1); Eosinophils% 1.5 % (0-5); Hematocrit 45.8 % (40-54); Hemoglobin 15.7 g/dL (13.0-16.5); Lymphocyte # 1.73 X10^3/ul (0.83-4.51); Lymphocyte % 26.7 % (19-41); Mean Corp Hgb Conc 34.3 g/dL (32-36); Mean Corpuscular Hgb 30.9 pg (27.0-32.0); Mean Corpuscular Volume 90.2 fL (80-94); Mean Platelet Vol. 9.6 fl (6.2-12.0); Monocyte# 0.49 X10^3/uL; Monocyte% 7.6 % (0-10); NRBC Flagged by Analyzer 0 % (0-5); Neutrophil # 4.07 X10^3/uL (2.7-7.7); Neutrophil % 62.9 % (47-70); Platelet Count 288 K/mm3 (150-450); RBC Distribution Width CV 12.4 % (11.6-14.6); RBC Distribution Width SD 41.4 fl (35.1-43.9); Red Blood Count 5.08 M/mm3 (4.6-6.2); White Blood Count 6.5 K/mm3 (4.4-11.0)
[2021-10-14 11:21] LABS: ALB/GLOB Ratio 0.8 RATIO (0.9-2.4); AST(SGOT) 21 U/L (15-37); Alanine Aminotransfer ALT/SGPT 41 U/L (16-61); Albumin, Serum 3.8 g/dL (3.2-5.0); Alkaline Phosphatase 78 U/L (45-117); Anion Gap 5 (5-15); BUN 19 mg/dL (7-18); BUN/Creat Ratio 17.8 RATIO (10-20); Calcium,Total 9.3 mg/dL (8.5-10.1); Chloride 105 mmol/L (98-107); Cholesterol 177 mg/dL (200); Creatinine, Serum 1.07 mg/dL (0.70-1.30); EST Glomerular Filtration Rate 75 mL/min (>60); Est Glom Filt Rate - Afr Amer 90 mL/min (>60); Globulin 4.6 g/dL (2.2-4.2); Glucose 149 mg/dL (74-106); High Density Lipoprotein 43 mg/dL; PSA,Total - Annual Screen 1.19 ng/mL (0.00-4.00); Potassium 4.4 mmol/L (3.5-5.1); Protein, Total 8.4 g/dL (6.4-8.2); Sodium Level 137 mmol/L (136-145); Triglycerides 85 mg/dL; Very Low Density Lipoprotein 17 mg/dL (5-40)
[2021-10-14 11:33] LABS: Hemoglobin A1c 6.2 % (3.8-5.6)
[2021-10-16 09:16] LABS: Vitamin B12 605 pg/mL (211-911); Vitamin D,25 Hydroxy 31.6 ng/mL
== END 2021-10-14 23:59 | disposition home or self-care (01) ==
LOC: LABSPEC 10:52
PROVIDERS: Referring Provider Nurse Practitioner Family; Visit Provider Nurse Practitioner Family
DX: U09.9 Post COVID-19 condition, unspecified (principal); R03.0 Elevated blood-pressure reading, without diagnosis of hypertension; I25.10 Atherosclerotic heart disease of native coronary artery without angina pectoris
CPT/HCPCS: 80053; 80061; 82306; 82607; 83036; 83090; 84153; 85025; G0103